=== PATIENT | female | born 2000 | race American Indian/Alaskan Native ===

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

== ENCOUNTER 2019-09-27 19:55 | Emergency (ER) | payer SELFPAY ==
[2019-09-27 20:08] VITALS: BP 123/81
--- NOTE | 2019-09-28 00:10 | Emergency Department Report ---
Abscess Boil HPI - HPI Chief Complaint: Skin/Abscess/Foreign Body Stated Complaint: LT LEG PAIN Time Seen by Provider: 09/28/19 00:03 Duration: 3 Days Location: Perianal Severity: Moderate History: Yes Pain, Yes Purulent Drainage, No Fever, No Numbness, No Foreign Body, No Previous History, No Insect Bite HPI: left labia abscess x 3 days Home Medications: Previous Rx's Medication Instructions Recorded Last Taken Type cephALEXin [Keflex] 500 mg PO Q8HR #30 cap 09/28/19 Unknown Rx traMADoL [Ultram] 50 mg PO Q6HR PRN #12 tablet 09/28/19 Unknown Rx Allergies/Adverse Reactions: Allergies Allergy/AdvReac Type Severity Reaction Status Date / Time No Known Allergies Allergy Verified 02/13/17 04:20 ED Review of Systems ROS: Stated complaint: LT LEG PAIN Other details as noted in HPI Constitutional: denies: chills, fever Eyes: denies: eye pain, eye discharge, vision change ENT: denies: ear pain, throat pain Respiratory: denies: cough, shortness of breath, wheezing Cardiovascular: denies: chest pain, palpitations Endocrine: no symptoms reported Gastrointestinal: denies: abdominal pain, nausea, diarrhea Genitourinary: as per HPI, other (left labia abscess ). denies: urgency, dysuria, frequency, hematuria, discharge Musculoskeletal: denies: back pain, joint swelling, arthralgia Skin: denies: rash, lesions Neurological: denies: headache, weakness, paresthesias Psychiatric: denies: anxiety, depression Hematological/Lymphatic: denies: easy bleeding, easy bruising ED Past Medical Hx - Past Medical History Previous Medical History?: No Additional medical history: Denies any medical hx - Surgical History Past Surgical History?: No Additional Surgical History: denies any surgical history - Social History Smoking Status: Never Smoker Substance Use Type: None - Medications Home Medications: Home Medications Medication Instructions Recorded Confirmed Last Taken Type cephALEXin [Keflex] 500 mg PO Q8HR #30 cap 09/28/19 Unknown Rx traMADoL [Ultram] 50 mg PO Q6HR PRN #12 tablet 09/28/19 Unknown Rx ED Abscess Boil Physical Exam - Exam General: Vital signs noted. No distress. Alert and acting appropriately. Size: 1 cm Exam: Yes Tenderness, Yes Fluctuance, Yes Surrounding Cellulites/Erythema, Yes Normal Neurologic Exam, Yes Normal Circulation, No Lymphangitis, No Crepitation, No Heart Murmur Exam: left labia abscess 1x1 cm ,fluctuant, erythema, pain to touche, purulent drainage. I & D Note - I & D Note I & D Note: Left labia abscess 1 x 1 cm, flucuant, erythema, purulent drainage, site cleaned with Betadine solution., Anesthesia with 1% lidocaine plain 1 cc. Incision with 11 blade scalpel x1, loculations broken up with six-inch blunt forceps, moderate purulent output, wound irrigated with 40 cc sterile saline, sterile dressing is applied all bleeding is controlled patient tolerated procedure with minimal distress. Patient given aftercare instructions verbalized understanding of same. ED Course Vital Signs 09/27/19 09/27/19 20:05 22:19 Temperature 98.5 F 98.5 F Pulse Rate 106 H 90 Respiratory 18 18 Rate Blood Pressure 123/81 123/81 O2 Sat by Pulse 96 100 Oximetry Critical care attestation.: If time is entered above; I have spent that time in minutes in the direct care of this critically ill patient, excluding procedure time. ED Medical Decision Making - Medical Decision Making Patient for incision and drainage of left labial abscess see procedure note. Sterile dressing remains intact all bleeding is controlled patient given after care instructions , patient verbalized agreement and understanding of same. Patient will be DC'd to home in stable condition with prescriptions. We will follow-up with primary care in 2 days for site check. Patient DC to home in stable condition at this time. ED Disposition Clinical Impression: Left genital labial abscess Disposition: DC-01 TO HOME OR SELFCARE Is pt being admited?: No Does the pt Need Aspirin: No Condition: Stable Instructions: Abscess (ED) Prescriptions: cephALEXin [Keflex] 500 mg PO Q8HR #30 cap traMADoL [Ultram] 50 mg PO Q6HR PRN #12 tablet PRN Reason: Pain Referrals: MILA RICE MD [Staff Physician] - 3-5 Days Forms: Work/School Release Form(ED) Time of Disposition: 00:17
== END 2019-09-28 00:25 | disposition home or self-care (01) ==
LOC: ED 19:55
DX: N76.4 Abscess of vulva (principal)
CPT/HCPCS: 99282